=== PATIENT | female | born 1970 | race African-American/Black ===

== ENCOUNTER 2018-02-08 22:35 | Emergency (ER) | payer OTHER ==
--- NOTE | 2018-02-08 22:49 | ED Physician Documentation ---
General Adult - HISTORIAN Historian: patient - HPI Stated Complaint: migraine Chief Complaint: General Adult Onset: hours Timing: still present Severity: moderate Further Comments: yes (Pt is a 47 yo female with c/o migraine headache. 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 Pt states that she has had migraines since the age of 9 and is followed by neurologist. Pt states that on a prior occasion compazine helped resolve her headache.) - ROS CONST: no problems EYES/ENT: none CVS/RESP: none GI/: nausea MS/SKIN/LYMPH: none NEURO/PSYCH: headache - PAST HX Past History: other (migraine, hypothyroidism) Allergies/Adverse Reactions: Allergies Allergy/AdvReac Type Severity Reaction Status Date / Time hydromorphone [From Dilaudid] AdvReac Rash Verified 02/08/18 22:59 Home Medications: Ambulatory Orders Medication Instructions Recorded Aspirin/Acetaminophen/Caffeine 2 each PO PRN PRN 02/08/18 [Excedrin Migraine Caplet] Levothyroxine Sodium 150 mcg PO DAILY 02/08/18 Topiramate 50 mg PO PRN PRN 02/08/18 Venlafaxine HCl [Venlafaxine HCl 37.5 mg PO PRN PRN 02/08/18 ER] - SOCIAL HX Smoking History: non-smoker - FAMILY HX Family History: No - REVIEWED ASSESSMENTS Nursing Assessment Reviewed: Yes Vitals Reviewed: Yes Progress - Progress Progress: Pt informed that compazine was not available at this time. Plan was to treat with IVF, Benadryl, Zofran, and Toradol. Pt then complained that the hospital was very [place] and that the dust was making her ill and pt signed out AMA. General Adult Physical Exam - PHYSICAL EXAM GENERAL APPEARANCE: moderate distress EENT: pharynx normal NECK: normal inspection, supple RESPIRATORY: no resp distress, chest non-tender, breath sounds normal CVS: reg rate & rhythm, heart sounds normal, no murmur BACK: normal inspection, no CVA tenderness SKIN: warm/dry, normal color EXTREMITIES: non-tender, normal range of motion, no evidence of injury NEURO: oriented X3, CN's nml as tested, motor nml, sensation nml, mood/affect nm l Discharge Clincal Impression: Migraine Referrals: Primary Doctor,No [Primary Care Provider] - Condition: Stable Disposition: AGAINST MEDICAL ADVICE Decision to Admit: NO Decision Time: :10
[2018-02-08] MEDS ORDERED: ONDANSETRON HCL/PF 4 MG/ 2ML VIAL IVP ONE (22:56)
[2018-02-08] MEDS ORDERED: diphenhydrAMINE HCL 50 MG/ML VIAL IVP ONE (22:57)
[2018-02-08] MEDS ORDERED: KETOROLAC TROMETHAMINE 30 MG/1ML VIAL IVP ONE (23:03)
== END 2018-02-08 23:10 | disposition left against medical advice (07) ==
LOC: ED 22:35
DX: G43.009 Migraine without aura, not intractable, without status migrainosus (principal)
CPT/HCPCS: S1016